=== PATIENT | female | born 1935 | race Caucasian/White ===

== ENCOUNTER 2017-07-10 17:41 | Inpatient (IN) ==
[2017-07-10] MEDS ORDERED: NON-FORMULARY MEDICATION 1 EACH EACH (Alendronate Sodium [Alendronate Sodium] 70 MG) PO SCH (19:15)
[2017-07-11] MEDS: Aspirin Enteric Coated 81 MG Tablet PO SCH (08:25)
[2017-07-11] MEDS: Multivit/Ca/Min/Fe/FA 1 TAB TABLET PO SCH (08:25)
[2017-07-11] MEDS: Celecoxib 200 MG CAPSULE PO SCH (08:27)
[2017-07-11] MEDS: Gabapentin 300 MG CAPSULE PO SCH (08:27)
[2017-07-11] MEDS: *HR* OxyCODONE Immed Rel 5 MG TABLET PO PRN (08:41)
[2017-07-11] MEDS ORDERED: VITAMIN D3 PO SCH (09:00)
[2017-07-11] MEDS ORDERED: CALCIUM CARBONATE PO SCH (09:00)
--- NOTE | 2017-07-11 11:25 | Internal Med History&Physical ---
Date of Encounter: 07/11/17 Time of Encounter: 11:18 Assessment and Plan (1) Fracture, proximal femur Current visit: No Status: Acute PT\OT eval and treat. Will follow progress. Continue oxycodone for pain. Ortho as scheduled. Qualifiers: Encounter type: sequela Fracture type: closed Laterality: right Qualified Code(s): S72.001S - Fracture of unspecified part of neck of right femur, sequela (2) Slow transit constipation Current visit: Yes Status: Acute Colace and Senna ordered. Will monitor for effectiveness Internal Medicine - H&P: HPI Admitted From: Hospital to Hospital Transfer Plans for Post Hospital Care: Home History of present illness: Ms. Waters is a 81 year old female admitted to rehab from [facility] s/ p right subtrochanteric femur fracture and ORIF. fracture was felt to be associated with biphosphonate use. fracture occured whitle bringing groceries into home from car. has had pain in hip for several months. Past medical history includes arthritis, Gerd, hypertension. Patient states pain is controlled with Tylenol and oxycodone. States feeling slightly constipated with last bowel movement 3 days ago. Denies abdominal pain. Denies fever, chills, nausea, vomiting or diarrhea. Maintaining appetite and hydration. Past Med Surg Social Fam HX - Past Medical History Medical history: GERD, hypertension Psychiatric history: anxiety - Past Surgical History Surgical History: cholecystectomy, knee replacement - Social History Smoking Status: Never smoker Smokeless Tobacco Status: No Alcohol use: none Drug use: none Internal Medicine - H&P: Meds Alendronate Sodium 70 mg PO QWEEK 07/04/17 [History] Aspirin [Lo-Dose Aspirin EC] 81 mg PO DAILY 07/04/17 [History] Calcium Carbonate/Vitamin D3 [Calcium 500 mg Chewable Tablet] 1 tab PO DAILY 04/22 [History] Celecoxib [Celebrex] 200 mg PO DAILY 07/04/17 [History] Gabapentin [Neurontin] 300 mg PO DAILY 07/04/17 [History] Minocycline [Minocin] 50 mg PO DAILY 07/04/17 [History] Multivit with Calcium,Iron,Min [One Daily Women's] 1 tab PO DAILY 07/04/17 [ History] Omeprazole [PriLOSEC] 20 mg PO DAILY 07/04/17 [History] Solifenacin Succinate [Vesicare] 5 mg PO DAILY 07/04/17 [History] OxyCODONE Immed Rel [Roxicodone 5 MG] 5 mg PO Q4HR PRN 07/10/17 [History] 3 Allergy/AdvReac Type Severity Reaction Status Date / Time hydrocortisone Allergy Rash Verified 10/18/15 16:20 [From Cortizone-10] All Systems PM: A 10-system review of systems was performed and is negative for pertinent findings except as documented above in the HPI. - Constitutional Constitutional: no chills, no fever(s), no night sweats - EENT Eyes: no change in vision, no discharge, no pain, no photophobia Ears: no ear discharge, no ear pain, no tinnitus Nose, mouth and throat: no dysphagia, no nasal discharge, no neck pain, no sore throat - Cardiovascular Cardiovascular ROS IM: no chest pain, no diaphoresis, no dyspnea, no lightheadedness, no palpitations, no syncope - Respiratory Respiratory: no cough, no dyspnea, no wheezing, no excessive phlegm production - Gastrointestinal Gastrointestinal: no abdominal pain, no diarrhea, no hematemesis, no hematochezia, no melena, no nausea, no vomiting - Genitourinary Genitourinary: no change in urinary stream, no dysuria, no flank pain, no hematuria - Musculoskeletal Musculoskeletal ROS IM: no numbness, no tingling - Integumentary Integumentary IM: no rash, no unusual bruising - Neurological Neurological ROS: no confusion, no convulsions, no focal weakness, no numbness, no tingling, no tremor(s) - Hematologic/Lymphatic Hematologic/Lymphatic: no easy bruising - Constitutional Vitals: Temp Pulse Resp BP Pulse Ox 97.9 F 84 14 126/72 96 07/11/17 08:00 07/11/17 08:00 07/11/17 08:00 07/11/17 08:00 07/11/17 10:29 General appearance: Present: cooperative, A&O X 3, pleasant, no acute distress, answers questions appropriately - Head Head exam: Present: atraumatic, normocephalic - Eye Eye exam: Present: PERRL, conjuntiva pink, sclera anicteric Pupils: Present: PERRL - Neck Neck exam general surgery: Present: supple, trachea midline. Absent: lymphadenopathy - Respiratory Respiratory exam: Present: CTAB. Absent: accessory muscle use, rales, rhonchi, wheezes - Cardiovascular Cardiovascular exam: Present: RRR, +S1, +S2. Absent: diastolic murmur, gallop, rubs, systolic murmur - GI/Abdominal GI/Abdominal exam: Present: normal bowel sounds, soft, no peritoneal signs. Absent: distended, tenderness - Extremities Exam Extremities exam: Present: warm, radial pulses palpable and symmetrical. Absent : calf tenderness, cyanotic, pedal edema - Incison Comments: Right hip dressing dry and intact. Slight surrounding edema. No sign of infection. - Neurological Exam Neurological exam: Present: CN II-XII intact, oriented X3, no focal deficits. Absent: pronater drift, facial droop, speech deficit - Skin Skin exam: Present: dry, intact - VTE Documentation of Mechanical Device: Graduated compression elastic hosiery
[2017-07-11] MEDS: Sennosides 8.6 MG TABLET PO SCH (15:42)
[2017-07-11] MEDS: Acetaminophen 325 MG TABLET PO PRN (20:41)
[2017-07-12 07:43] LABS: Basophils # 0.1 K/mcL (0.0-0.2); Basophils % 0.5 %; Eosinophils # 0.3 K/mcL (0.0-0.6); Eosinophils % 2.9 %; Hematocrit 31.1 % (35.3-44.9); Hemoglobin 10.5 g/dL (11.5-15.4); Immature Granulocytes % 3.3 % (0-4); Lymphocytes # 2.6 K/mcL (0.6-4.6); Lymphocytes % 23.5 %; Mean Corpuscular HGB Conc 33.8 g/dL (31.6-35.5); Mean Corpuscular Hemoglobin 33.5 pg (28.0-33.3); Mean Corpuscular Volume 99.4 fL (83.0-100.0); Mean Platelet Volume 8.9 fL (9.4-12.4); Monocytes # 1.1 K/mcL (0.0-1.3); Monocytes % 9.9 %; Neutrophils # 6.6 K/mcL (1.6-8.9); Nucleated Red Blood Cells 0.2 /100 WBC (0); Platelet Count 400 K/mcL (140-400); Red Blood Count 3.13 M/mcL (3.82-4.97); Red Cell Distribution Width 13.7 % (11.5-14.5); Segmented Neutrophils % 59.9 %
[2017-07-12] MEDS: Sennosides 8.6 MG TABLET PO SCH (08:24)
[2017-07-12] MEDS: Celecoxib 200 MG CAPSULE PO SCH (08:24)
[2017-07-12] MEDS: Multivit/Ca/Min/Fe/FA 1 TAB TABLET PO SCH (08:25)
[2017-07-12] MEDS: Cholecalciferol (D-3) 1,000 UNIT TABLET PO SCH (08:26)
[2017-07-12] MEDS: Gabapentin 300 MG CAPSULE PO SCH (08:26)
[2017-07-12] MEDS: Aspirin Enteric Coated 81 MG Tablet PO SCH (08:27)
[2017-07-12 12:10] LABS: BUN/Creatinine Ratio 35 (6-26); Blood Urea Nitrogen 22 mg/dL (8-23); Calcium 8.7 mg/dL (8.6-10.3); Carbon Dioxide 27 mEq/L (23-29); Chloride 101 mEq/L (98-107); Glucose 105 mg/dL (70-105); Osmolality,Calculated 288 (280-300); Potassium 4.2 mEq/L (3.5-5.1); Sodium 137 mEq/L (136-145); eGFR For African Americans > 60 (> 60); eGFR For Non-African Americans > 60 (> 60)
[2017-07-12] MEDS: *HR* OxyCODONE Immed Rel 5 MG TABLET PO PRN ×2 (12:31→22:17)
--- NOTE | 2017-07-12 16:58 | Internal Med Progress Note ---
Date of Encounter: 07/12/17 Time of Encounter: 16:52 - Assessment and plan (1) Fracture of right hip requiring operative repair Current Visit: Yes Status: Acute Assessment and plan: Right hip surgical dressing showing moderate amount of shadowing. Nurse reports that dressing has saturated twice over the past 24 hours with serosanguineous type drainage. Patient has a large amount of ecchymosis and swelling surrounding surgical site, which remains soft on palpation. No signs of infectious process noted. Patient is afebrile. We will have nursing apply ice to surgical site. We will review current labs. Patient to continue with physical therapy and mobilize. Qualifiers: Encounter type: subsequent encounter Fracture type: closed Fracture healing: with delayed healing Qualified Code(s): S72.001G - Fracture of unspecified part of neck of right femur, subsequent encounter for closed fracture with delayed healing (2) HTN (hypertension) Current Visit: Yes Status: Acute Assessment and plan: Vital signs stable. We will continue with current medications. Qualifiers: Hypertension type: essential hypertension Qualified Code(s): I10 - Essential (primary) hypertension (3) GERD (gastroesophageal reflux disease) Current Visit: Yes Status: Acute Assessment and plan: No current complaints. We will continue with current scheduled medications. Qualifiers: Esophagitis presence: without esophagitis Qualified Code(s): K21.9 - Gastro -esophageal reflux disease without esophagitis - Time Spent With Patient less than 15 minutes - Subjective Interval history: Patient appears relaxed and currently denies any discomforts. - Constitutional Vitals: Temp Pulse Resp BP Pulse Ox 97.6 F 82 16 119/75 97 07/12/17 16:46 07/12/17 16:46 07/12/17 16:46 07/12/17 16:46 07/12/17 16:46 General appearance: Present: cooperative, A&O X 3, pleasant, no acute distress, answers questions appropriately - Head Head exam: Present: atraumatic, normocephalic - Eye Eye exam: Present: PERRL, conjuntiva pink, sclera anicteric Pupils: Present: PERRL - Neck Neck exam general surgery: Present: supple, trachea midline. Absent: lymphadenopathy - Respiratory Respiratory exam: Present: CTAB. Absent: accessory muscle use, rales, rhonchi, wheezes - Cardiovascular Cardiovascular exam: Present: RRR, +S1, +S2. Absent: diastolic murmur, gallop, rubs, systolic murmur - GI/Abdominal GI/Abdominal exam: Present: normal bowel sounds, soft, no peritoneal signs. Absent: distended, tenderness - Extremities Exam Extremities exam: Present: warm, radial pulses palpable and symmetrical. Absent : calf tenderness, cyanotic, pedal edema Additional comments: Right hip surgical dressing with moderate amount of shadowing noted. Patient has had moderate amount of serosanguineous drainage from surgical incision. Right hip appears swollen with a large amount of ecchymosis surrounding surgical site. - Neurological Exam Neurological exam: Present: CN II-XII intact, oriented X3, no focal deficits. Absent: pronater drift, facial droop, speech deficit - Skin Skin exam: Present: dry, intact Internal Medicine: Result - Labs CBC & Chem 7: 07/12/17 07:09 07/12/17 07:09 Labs: Short CBC 07/12/17 Range/Units 07:09 WBC 11.1 (4.3-11.1) K/mcL Hgb 10.5 L (11.5-15.4) g/dL Hct 31.1 L (35.3-44.9) % Plt Count 400 (140-400) K/mcL Neutrophils # 6.6 (1.6-8.9) K/mcL BMP 07/12/17 07:09 Sodium 137 Potassium 4.2 Chloride 101 Carbon Dioxide 27 BUN 22 Creatinine 0.63 Glucose 105 Calcium 8.7 - VTE Documentation of Mechanical Device: Graduated compression elastic hosiery Consult Discharge Plan - Plan Referrals: Brian Cobos MD [Primary Care Provider] -
[2017-07-13] MEDS: *HR* OxyCODONE Immed Rel 5 MG TABLET PO PRN ×2 (04:36→09:38)
[2017-07-13 06:58] LABS: Hematocrit 30.3 % (35.3-44.9); Hemoglobin 10.1 g/dL (11.5-15.4); Mean Corpuscular HGB Conc 33.3 g/dL (31.6-35.5); Mean Corpuscular Hemoglobin 33.4 pg (28.0-33.3); Mean Corpuscular Volume 100.3 fL (83.0-100.0); Mean Platelet Volume 8.8 fL (9.4-12.4); Platelet Count 401 K/mcL (140-400); Red Blood Count 3.02 M/mcL (3.82-4.97)
[2017-07-13 07:21] LABS: Alanine Aminotransferase 32 Units/L (7-52); Albumin 3.1 g/dL (3.5-5.7); Albumin/Globulin Ratio 1.1 (1.1-2.2); Alkaline Phosphatase 56 Units/L (34-104); Aspartate Amino Transferase 21 Units/L (13-39); BUN/Creatinine Ratio 29 (6-26); Bilirubin,Total 0.7 mg/dL (0.3-1.0); Blood Urea Nitrogen 16 mg/dL (8-23); Calcium 8.6 mg/dL (8.6-10.3); Carbon Dioxide 29 mEq/L (23-29); Chloride 104 mEq/L (98-107); Globulin 2.9 g/dL (2.4-3.5); Glucose 102 mg/dL (70-105); Magnesium 1.7 mg/dL (1.6-2.6); Osmolality,Calculated 287 (280-300); Sodium 138 mEq/L (136-145); eGFR For African Americans > 60 (> 60); eGFR For Non-African Americans > 60 (> 60)
[2017-07-13] MEDS: Cholecalciferol (D-3) 1,000 UNIT TABLET PO SCH (09:37)
[2017-07-13] MEDS: Gabapentin 300 MG CAPSULE PO SCH (09:38)
[2017-07-13] MEDS: Multivit/Ca/Min/Fe/FA 1 TAB TABLET PO SCH (09:38)
[2017-07-13] MEDS: Sennosides 8.6 MG TABLET PO SCH (09:39)
[2017-07-13] MEDS: Aspirin Enteric Coated 81 MG Tablet PO SCH ×2 (09:39→10:47)
[2017-07-13] MEDS: Celecoxib 200 MG CAPSULE PO SCH (09:39)
--- NOTE | 2017-07-13 09:56 | Internal Med Progress Note ---
Date of Encounter: 07/13/17 Time of Encounter: 09:53 - Assessment and plan (1) Fracture of right hip requiring operative repair Current Visit: Yes Status: Acute Assessment and plan: Right hip surgical dressing continues to show a small amount of shadowing to upper portion of dressing. Drainage has dropped off over the past 24 hours. Patient has a large amount of ecchymosis and swelling surrounding surgical site , which remains soft on palpation. No signs of infectious process noted. Patient is afebrile. Patient has complained of moderate pain to right hip during therapy. We will reevaluate patient's current medications. Labs show hemoglobin is stable greater than 10. We to 2 apply ice to surgical site. Patient to continue with physical therapy and mobilize. Qualifiers: Encounter type: subsequent encounter Fracture type: closed Fracture healing: with delayed healing Qualified Code(s): S72.001G - Fracture of unspecified part of neck of right femur, subsequent encounter for closed fracture with delayed healing (2) HTN (hypertension) Current Visit: Yes Status: Acute Assessment and plan: Vital signs stable. We will continue with current medications and monitor closely. Qualifiers: Hypertension type: essential hypertension Qualified Code(s): I10 - Essential (primary) hypertension (3) GERD (gastroesophageal reflux disease) Current Visit: Yes Status: Acute Assessment and plan: No current complaints. We will continue with current scheduled medications. Qualifiers: Esophagitis presence: without esophagitis Qualified Code(s): K21.9 - Gastro -esophageal reflux disease without esophagitis - Time Spent With Patient less than 15 minutes - Subjective Interval history: Patient appears relaxed. Patient states that she has had increased pain when mobilizing. Patient states concerns about swelling and ecchymosis to right hip surgical site. Right hip was examined and patient was reassured. - Constitutional Vitals: Temp Pulse Resp BP Pulse Ox 97.9 F 88 16 121/66 97 07/12/17 20:24 07/12/17 20:24 07/12/17 20:24 07/12/17 20:24 07/12/17 20:24 General appearance: Present: cooperative, A&O X 3, pleasant, no acute distress, answers questions appropriately - Head Head exam: Present: atraumatic, normocephalic - Eye Eye exam: Present: PERRL, conjuntiva pink, sclera anicteric Pupils: Present: PERRL - Neck Neck exam general surgery: Present: supple, trachea midline. Absent: lymphadenopathy - Respiratory Respiratory exam: Present: CTAB. Absent: accessory muscle use, rales, rhonchi, wheezes - Cardiovascular Cardiovascular exam: Present: RRR, +S1, +S2. Absent: diastolic murmur, gallop, rubs, systolic murmur - GI/Abdominal GI/Abdominal exam: Present: normal bowel sounds, soft, no peritoneal signs. Absent: distended, tenderness - Extremities Exam Extremities exam: Present: warm, radial pulses palpable and symmetrical. Absent : calf tenderness, cyanotic, pedal edema Additional comments: Right hip surgical site appears intact. Noted serosanguineous type drainage to upper portion of his incision with a small amount of shadowing noted in dressing. Large amount of ecchymosis and edema noted, mostly to posterior hip and thigh. Surrounding tissue to surgical site remains soft on palpation. - Neurological Exam Neurological exam: Present: CN II-XII intact, oriented X3, no focal deficits. Absent: pronater drift, facial droop, speech deficit - Skin Skin exam: Present: dry, intact Internal Medicine: Result - Labs CBC & Chem 7: 07/13/17 06:32 07/13/17 06:32 Labs: Short CBC 07/13/17 Range/Units 06:32 WBC 10.1 (4.3-11.1) K/mcL Hgb 10.1 L (11.5-15.4) g/dL Hct 30.3 L (35.3-44.9) % Plt Count 401 H (140-400) K/mcL BMP 07/12/17 07/13/17 07:09 06:32 Sodium 137 138 Potassium 4.2 4.0 Chloride 101 104 Carbon Dioxide 27 29 BUN 22 16 Creatinine 0.63 0.56 L Glucose 105 102 Calcium 8.7 8.6 Liver Function 07/13/17 Range/Units 06:32 Total Bilirubin 0.7 (0.3-1.0) mg/dL AST 21 (13-39) Units/L ALT 32 (7-52) Units/L Alkaline Phosphatase 56 (34-104) Units/L Albumin 3.1 L (3.5-5.7) g/dL - VTE Documentation of Mechanical Device: Graduated compression elastic hosiery Consult Discharge Plan - Plan Referrals: Brian Cobos MD [Primary Care Provider] -
[2017-07-13] MEDS: Acetaminophen 325 MG TABLET PO PRN (21:23)
[2017-07-14] MEDS: *HR* OxyCODONE Immed Rel 5 MG TABLET PO PRN ×4 (01:35→18:53)
[2017-07-14] MEDS: Aspirin Enteric Coated 81 MG Tablet PO SCH (08:30)
[2017-07-14] MEDS: Multivit/Ca/Min/Fe/FA 1 TAB TABLET PO SCH (08:30)
[2017-07-14] MEDS: Celecoxib 200 MG CAPSULE PO SCH (08:31)
[2017-07-14] MEDS: Sennosides 8.6 MG TABLET PO SCH (08:31)
[2017-07-14] MEDS: Gabapentin 300 MG CAPSULE PO SCH (08:31)
[2017-07-14] MEDS: Cholecalciferol (D-3) 1,000 UNIT TABLET PO SCH (08:31)
[2017-07-15] MEDS: *HR* OxyCODONE Immed Rel 5 MG TABLET PO PRN ×3 (00:57→20:44)
[2017-07-15] MEDS: Aspirin Enteric Coated 81 MG Tablet PO SCH (07:58)
[2017-07-15] MEDS: Cholecalciferol (D-3) 1,000 UNIT TABLET PO SCH (07:58)
[2017-07-15] MEDS: Gabapentin 300 MG CAPSULE PO SCH (07:58)
[2017-07-15] MEDS: Celecoxib 200 MG CAPSULE PO SCH (07:58)
[2017-07-15] MEDS: Multivit/Ca/Min/Fe/FA 1 TAB TABLET PO SCH (07:58)
[2017-07-15] MEDS: Sennosides 8.6 MG TABLET PO SCH (07:59)
[2017-07-15] MEDS: *HR* Heparin 5,000 UNIT/ML VIAL SQ SCH (18:29)
[2017-07-16] MEDS: *HR* Heparin 5,000 UNIT/ML VIAL SQ SCH ×2 (04:51→18:29)
[2017-07-16] MEDS: *HR* OxyCODONE Immed Rel 5 MG TABLET PO PRN ×5 (04:58→21:39)
[2017-07-16] MEDS: Celecoxib 200 MG CAPSULE PO SCH (08:56)
[2017-07-16] MEDS: Gabapentin 300 MG CAPSULE PO SCH (08:56)
[2017-07-16] MEDS: Aspirin Enteric Coated 81 MG Tablet PO SCH (08:56)
[2017-07-16] MEDS: Cholecalciferol (D-3) 1,000 UNIT TABLET PO SCH (08:56)
[2017-07-16] MEDS: Multivit/Ca/Min/Fe/FA 1 TAB TABLET PO SCH (08:56)
[2017-07-16] MEDS: Sennosides 8.6 MG TABLET PO SCH (08:57)
--- NOTE | 2017-07-16 10:57 | Internal Med Progress Note ---
Date of Encounter: 07/16/17 Time of Encounter: 10:55 - Assessment and plan (1) Fracture, proximal femur Current Visit: No Status: Inactive Assessment and plan: Continue PT\OT. Will start Zanaflex as needed for muscle spasms. Keflex started for increased drainage and slight redness to incision. For preventative measure Qualifiers: Encounter type: sequela Fracture type: closed Laterality: right Qualified Code(s): S72.001S - Fracture of unspecified part of neck of right femur, sequela - Time Spent With Patient 25 - 35 minutes - Subjective Interval history: Participating well with therapy. Patient complains of increased hip pain. Radiating through the thigh area. Feels like muscle spasms. Nursing staff reports increased drainage to incision. Patient denies fever, chills, nausea, vomiting or diarrhea. Patient states last BM yesterday. Maintaining appetite and hydration. - Constitutional Vitals: Temp Pulse Resp BP Pulse Ox 98.1 F 78 16 125/72 97 07/16/17 07:00 07/16/17 07:00 07/16/17 07:00 07/16/17 07:00 07/16/17 07:00 General appearance: Present: cooperative, A&O X 3, pleasant, no acute distress, answers questions appropriately - Head Head exam: Present: atraumatic, normocephalic - Eye Eye exam: Present: PERRL, conjuntiva pink, sclera anicteric Pupils: Present: PERRL - Neck Neck exam general surgery: Present: supple, trachea midline. Absent: lymphadenopathy - Respiratory Respiratory exam: Present: CTAB. Absent: accessory muscle use, rales, rhonchi, wheezes - Cardiovascular Cardiovascular exam: Present: RRR, +S1, +S2. Absent: diastolic murmur, gallop, rubs, systolic murmur - GI/Abdominal GI/Abdominal exam: Present: normal bowel sounds, soft, no peritoneal signs. Absent: distended, tenderness - Extremities Exam Extremities exam: Present: warm, radial pulses palpable and symmetrical. Absent : calf tenderness, cyanotic, pedal edema - Incison Comments: Right hip incision [place] intact. Well approximated with slight redness on proximal end of incision. Distal and draining sanguinous drainage. Scattered ecchymosis. - Neurological Exam Neurological exam: Present: CN II-XII intact, oriented X3, no focal deficits. Absent: pronater drift, facial droop, speech deficit - Skin Skin exam: Present: dry, intact Internal Medicine: Result - Labs CBC & Chem 7: 07/13/17 06:32 07/13/17 06:32 - VTE Documentation of Mechanical Device: Graduated compression elastic hosiery Consult Discharge Plan - Plan Referrals: Brian Cobos MD [Primary Care Provider] -
[2017-07-16] MEDS: tiZANidine 4 MG TABLET PO PRN (11:05)
[2017-07-16] MEDS: cephALEXin 500 MG CAPSULE PO SCH ×3 (13:19→21:38)
[2017-07-16 19:22] LABS: Basophils % 0.3 %; Eosinophils # 0.3 K/mcL (0.0-0.6); Eosinophils % 2.8 %; Hematocrit 32.2 % (35.3-44.9); Hemoglobin 10.8 g/dL (11.5-15.4); Immature Granulocytes % 0.7 % (0-4); Lymphocytes # 2.5 K/mcL (0.6-4.6); Lymphocytes % 23.1 %; Mean Corpuscular HGB Conc 33.5 g/dL (31.6-35.5); Mean Corpuscular Hemoglobin 34.7 pg (28.0-33.3); Mean Corpuscular Volume 103.5 fL (83.0-100.0); Mean Platelet Volume 8.8 fL (9.4-12.4); Monocytes # 0.9 K/mcL (0.0-1.3); Monocytes % 8.4 %; Neutrophils # 6.9 K/mcL (1.6-8.9); Platelet Count 402 K/mcL (140-400); Red Blood Count 3.11 M/mcL (3.82-4.97); Red Cell Distribution Width 15.4 % (11.5-14.5); Segmented Neutrophils % 64.7 %
[2017-07-16 19:35] LABS: BUN/Creatinine Ratio 31 (6-26); Blood Urea Nitrogen 24 mg/dL (8-23); Calcium 8.9 mg/dL (8.6-10.3); Carbon Dioxide 29 mEq/L (23-29); Chloride 101 mEq/L (98-107); Glucose 103 mg/dL (70-105); Osmolality,Calculated 286 (280-300); Potassium 4.1 mEq/L (3.5-5.1); Sodium 136 mEq/L (136-145); eGFR For African Americans > 60 (> 60); eGFR For Non-African Americans > 60 (> 60)
[2017-07-17] MEDS: *HR* Heparin 5,000 UNIT/ML VIAL SQ SCH ×2 (05:18→17:16)
[2017-07-17] MEDS: *HR* OxyCODONE Immed Rel 5 MG TABLET PO PRN ×5 (05:20→21:27)
[2017-07-17 05:36] LABS: Basophils % 0.4 %; Eosinophils # 0.3 K/mcL (0.0-0.6); Eosinophils % 3.7 %; Hemoglobin 10.5 g/dL (11.5-15.4); Immature Granulocytes % 0.6 % (0-4); Lymphocytes # 1.7 K/mcL (0.6-4.6); Lymphocytes % 21.3 %; Mean Corpuscular HGB Conc 32.8 g/dL (31.6-35.5); Mean Corpuscular Hemoglobin 33.8 pg (28.0-33.3); Mean Corpuscular Volume 102.9 fL (83.0-100.0); Mean Platelet Volume 8.6 fL (9.4-12.4); Monocytes # 0.7 K/mcL (0.0-1.3); Monocytes % 8.5 %; Neutrophils # 5.3 K/mcL (1.6-8.9); Platelet Count 383 K/mcL (140-400); Red Blood Count 3.11 M/mcL (3.82-4.97); Red Cell Distribution Width 15.9 % (11.5-14.5); Segmented Neutrophils % 65.5 %
[2017-07-17 05:52] LABS: BUN/Creatinine Ratio 32 (6-26); Blood Urea Nitrogen 20 mg/dL (8-23); Calcium 8.9 mg/dL (8.6-10.3); Carbon Dioxide 30 mEq/L (23-29); Chloride 103 mEq/L (98-107); Glucose 99 mg/dL (70-105); Osmolality,Calculated 289 (280-300); Potassium 4.4 mEq/L (3.5-5.1); Sodium 138 mEq/L (136-145); eGFR For African Americans > 60 (> 60); eGFR For Non-African Americans > 60 (> 60)
[2017-07-17] MEDS: Gabapentin 300 MG CAPSULE PO SCH (08:02)
[2017-07-17] MEDS: Sennosides 8.6 MG TABLET PO SCH (08:02)
[2017-07-17] MEDS: Aspirin Enteric Coated 81 MG Tablet PO SCH (08:02)
[2017-07-17] MEDS: Multivit/Ca/Min/Fe/FA 1 TAB TABLET PO SCH (08:02)
[2017-07-17] MEDS: Celecoxib 200 MG CAPSULE PO SCH (08:02)
[2017-07-17] MEDS: Cholecalciferol (D-3) 1,000 UNIT TABLET PO SCH (08:03)
[2017-07-17] MEDS: cephALEXin 500 MG CAPSULE PO SCH ×4 (08:03→21:27)
--- NOTE | 2017-07-17 15:42 | Internal Med Progress Note ---
Date of Encounter: 07/17/17 Time of Encounter: 15:40 - Assessment and plan (1) Fracture, proximal femur Current Visit: No Status: Inactive Assessment and plan: Continue PT\OT. continue current pain meds. will continue Keflex drainage and slight redness to incision. For preventative measure Qualifiers: Encounter type: sequela Fracture type: closed Laterality: right Qualified Code(s): S72.001S - Fracture of unspecified part of neck of right femur, sequela - Time Spent With Patient less than 15 minutes - Subjective Interval history: Participating well with therapy. states pain is controlled better with medication today. Patient denies fever, chills, nausea, vomiting or diarrhea. Patient states last BM yesterday. Maintaining appetite and hydration. - Constitutional Vitals: Temp Pulse Resp BP Pulse Ox 98.1 F 73 16 122/72 95 07/17/17 06:56 07/17/17 06:56 07/17/17 06:56 07/17/17 06:56 07/17/17 06:56 General appearance: Present: cooperative, A&O X 3, pleasant, no acute distress, answers questions appropriately - Head Head exam: Present: atraumatic, normocephalic - Eye Eye exam: Present: PERRL, conjuntiva pink, sclera anicteric Pupils: Present: PERRL - Neck Neck exam general surgery: Present: supple, trachea midline. Absent: lymphadenopathy - Respiratory Respiratory exam: Present: CTAB. Absent: accessory muscle use, rales, rhonchi, wheezes - Cardiovascular Cardiovascular exam: Present: RRR, +S1, +S2. Absent: diastolic murmur, gallop, rubs, systolic murmur - GI/Abdominal GI/Abdominal exam: Present: normal bowel sounds, soft, no peritoneal signs. Absent: distended, tenderness - Extremities Exam Extremities exam: Present: warm, radial pulses palpable and symmetrical. Absent : calf tenderness, cyanotic, pedal edema - Incison Comments: right hip drsg intact with surrounding edema and eccchymosis. slight drainage. - Neurological Exam Neurological exam: Present: CN II-XII intact, oriented X3, no focal deficits. Absent: pronater drift, facial droop, speech deficit - Skin Skin exam: Present: dry, intact Internal Medicine: Result - Labs CBC & Chem 7: 05/15/18 05:25 07/17/17 05:25 Labs: Short CBC 07/16/17 07/17/17 Range/Units 19:05 05:25 WBC 10.6 8.1 (4.3-11.1) K/mcL Hgb 10.8 L 10.5 L (11.5-15.4) g/dL Hct 32.2 L 32.0 L (35.3-44.9) % Plt Count 402 H 383 (140-400) K/mcL Neutrophils # 6.9 5.3 (1.6-8.9) K/mcL BMP 07/16/17 07/17/17 19:05 05:25 Sodium 136 138 Potassium 4.1 4.4 Chloride 101 103 Carbon Dioxide 29 30 H BUN 24 H 20 Creatinine 0.77 0.63 Glucose 103 99 Calcium 8.9 8.9 - Impressions Impressions Hip X-Ray 07/16/17 13:56 IMPRESSION: 1. Anatomic reduction of right subtrochanteric transverse femur fracture with intact hardware and mild interval callus formation. 2. Normal right hip alignment. D/ / 07/16/2017 15:38:05 Isaias James MD / giancarlo Interpreting Provider: Isaias James MD - VTE Documentation of Mechanical Device: Graduated compression elastic hosiery Consult Discharge Plan - Plan Referrals: Brian Cobos MD [Primary Care Provider] -
[2017-07-18] MEDS: Acetaminophen 325 MG TABLET PO PRN (05:25)
[2017-07-18] MEDS: tiZANidine 4 MG TABLET PO PRN (05:25)
[2017-07-18] MEDS: *HR* Heparin 5,000 UNIT/ML VIAL SQ SCH ×2 (05:26→18:58)
[2017-07-18] MEDS: *HR* OxyCODONE Immed Rel 5 MG TABLET PO PRN ×4 (08:38→21:18)
[2017-07-18] MEDS: Cholecalciferol (D-3) 1,000 UNIT TABLET PO SCH (08:39)
[2017-07-18] MEDS: Aspirin Enteric Coated 81 MG Tablet PO SCH (08:39)
[2017-07-18] MEDS: Celecoxib 200 MG CAPSULE PO SCH (08:39)
[2017-07-18] MEDS: Multivit/Ca/Min/Fe/FA 1 TAB TABLET PO SCH (08:39)
[2017-07-18] MEDS: cephALEXin 500 MG CAPSULE PO SCH ×4 (08:39→21:18)
[2017-07-18] MEDS: Gabapentin 300 MG CAPSULE PO SCH (08:39)
[2017-07-18] MEDS: Sennosides 8.6 MG TABLET PO SCH (08:40)
--- NOTE | 2017-07-18 11:35 | Internal Med Progress Note ---
Date of Encounter: 07/18/17 Time of Encounter: 11:07 - Assessment and plan (1) Fracture of right hip requiring operative repair Current Visit: Yes Status: Acute Assessment and plan: Right hip surgical dressing continues to show a small amount of shadowing to upper portion of dressing. No drainage noted over the past 24 hours. Patient has a large amount of ecchymosis to the posterior thigh and swelling surrounding surgical site. Leg leg is swollen with no reports of pain to the lower leg. No signs of infectious process noted. Patient is afebrile. Patient has complained of moderate pain to right hip during therapy. We will reevaluate patient's current medications. Labs show hemoglobin is stable greater than 10. Will continue ice to surgical site. Phani hose to legs. Patient to continue with physical therapy and mobilize. Qualifiers: Encounter type: subsequent encounter Fracture type: closed Fracture healing: with delayed healing Qualified Code(s): S72.001G - Fracture of unspecified part of neck of right femur, subsequent encounter for closed fracture with delayed healing (2) HTN (hypertension) Current Visit: Yes Status: Acute Assessment and plan: Vital signs stable. We will continue with current medications and monitor closely. Qualifiers: Hypertension type: essential hypertension Qualified Code(s): I10 - Essential (primary) hypertension (3) GERD (gastroesophageal reflux disease) Current Visit: Yes Status: Acute Assessment and plan: No current complaints. We will continue with current scheduled medications. Qualifiers: Esophagitis presence: without esophagitis Qualified Code(s): K21.9 - Gastro -esophageal reflux disease without esophagitis - Time Spent With Patient less than 15 minutes - Subjective Interval history: Patient appears relaxed. Patient states that she continues to have increased pain when mobilizing. Patient states concerns about swelling and ecchymosis to right hip surgical site. Right hip was examined and patient was reassured. - Constitutional Vitals: Temp Pulse Resp BP Pulse Ox 98.0 F 73 16 119/69 94 07/18/17 06:00 07/18/17 06:00 07/18/17 06:00 07/18/17 06:00 07/18/17 06:00 General appearance: Present: cooperative, A&O X 3, pleasant, no acute distress, answers questions appropriately - Head Head exam: Present: atraumatic, normocephalic - Eye Eye exam: Present: PERRL, conjuntiva pink, sclera anicteric Pupils: Present: PERRL - Neck Neck exam general surgery: Present: supple, trachea midline. Absent: lymphadenopathy - Respiratory Respiratory exam: Present: CTAB. Absent: accessory muscle use, rales, rhonchi, wheezes - Cardiovascular Cardiovascular exam: Present: RRR, +S1, +S2. Absent: diastolic murmur, gallop, rubs, systolic murmur - GI/Abdominal GI/Abdominal exam: Present: normal bowel sounds, soft, no peritoneal signs. Absent: distended, tenderness - Extremities Exam Extremities exam: Present: joint swelling, warm, radial pulses palpable and symmetrical. Absent: calf tenderness, cyanotic, pedal edema Additional comments: Right hip and thigh surgical incisions appear dry and intact. Patient noted to have large amount of ecchymosis still present to the posterior portion of her thigh. Right leg shows moderate amount of edema. Patient denies any pain to the lower leg. - Neurological Exam Neurological exam: Present: CN II-XII intact, oriented X3, no focal deficits. Absent: pronater drift, facial droop, speech deficit - Skin Skin exam: Present: dry, intact Internal Medicine: Result - Labs CBC & Chem 7: 07/17/17 05:25 07/17/17 05:25 - VTE Documentation of Mechanical Device: Graduated compression elastic hosiery Consult Discharge Plan - Plan Referrals: Brian Cobos MD [Primary Care Provider] -
--- NOTE | 2017-07-18 22:23 | Physcial Medicine-Consult Note ---
Date of Encounter: 07/18/17 Time of Encounter: 16:00 Physical Medicine - AP (1) Fracture of right hip requiring operative repair Status: Acute Assessment and plan: Good progress. Ambulating 125" WWKR SBA continue rehab. Assess for constipation. Code(s): S72.001A - Fracture of unspecified part of neck of right femur, initial encounter for closed fracture SNOMED Code(s): 830422237 Physical Medicine - HPI - Data of Consult Requesting Physician: Alf Egan MD Primary Care Provider: Brian Cobos MD - Consult Narrative History of present illness: Ms. Waters is a 81 year old RH female with hip fracture s/p IM nail. She c/o hip pain near the end of activity, better at rest. No numbness tingling or calf pain. CC: Alf Egan MD Past Med Surg Social Fam HX - Past Medical History Medical history: GERD, hypertension Psychiatric history: anxiety - Past Surgical History Surgical History: cholecystectomy, knee replacement - Social History Smoking Status: Never smoker Smokeless Tobacco Status: No Alcohol use: none Drug use: none Medications and Allergies Alendronate Sodium 70 mg PO QWEEK 07/04/17 [History] Aspirin [Lo-Dose Aspirin EC] 81 mg PO DAILY 07/04/17 [History] Calcium Carbonate/Vitamin D3 [Calcium 500 mg Chewable Tablet] 1 tab PO DAILY 04/22 [History] Celecoxib [Celebrex] 200 mg PO DAILY 07/04/17 [History] Gabapentin [Neurontin] 300 mg PO DAILY 07/04/17 [History] Minocycline [Minocin] 50 mg PO DAILY 07/04/17 [History] Multivit with Calcium,Iron,Min [One Daily Women's] 1 tab PO DAILY 07/04/17 [ History] Omeprazole [PriLOSEC] 20 mg PO DAILY 07/04/17 [History] Solifenacin Succinate [Vesicare] 5 mg PO DAILY 07/04/17 [History] OxyCODONE Immed Rel [Roxicodone 5 MG] 5 mg PO Q4HR PRN 07/10/17 [History] 3 Allergy/AdvReac Type Severity Reaction Status Date / Time hydrocortisone Allergy Rash Verified 10/18/15 16:20 [From Cortizone-10] All systems: reviewed and no additional remarkable complaints except as stated Physical Medicine - Exam - Constitutional Vitals: Temp Pulse Resp BP Pulse Ox 97.9 F 83 16 129/57 95 07/18/17 19:06 07/18/17 19:06 07/18/17 19:06 07/18/17 19:06 07/18/17 19:06 General appearance: average body habitus, cooperative, no acute distress - Head Head exam: Present: atraumatic, normocephalic - Eye Eye exam: Present: EOMI - ENT ENT exam: Present: mucous membranes moist - Neck Neck exam: Present: full ROM - Respiratory Respiratory exam: Present: CTAB - Cardiovascular Cardiovascular exam: Present: RRR - GI/Abdominal GI/Abdominal exam: Present: normal bowel sounds, soft - Extremities Exam Extremities exam: Absent: calf tenderness, full ROM Additional comments: Antigravity right hip flexion. 1+ LE edema. Good distal strngth. - Neurological Exam Neurological exam: Present: abnormal gait, alert, oriented X3, no focal deficits - Psychiatric Psychiatric exam: Present: normal affect, normal mood - Skin Additional comments: Right hip and distal thigh incisions Physical Medicine - Results - Labs CBC & Chem 7: 07/17/17 05:25 07/17/17 05:25 Labs: Anemia - Impressions ITS Impressions Hip X-Ray 07/16/17 13:56 IMPRESSION: 1. Anatomic reduction of right subtrochanteric transverse femur fracture with intact hardware and mild interval callus formation. 2. Normal right hip alignment. D/ / 07/16/2017 15:38:05 Isaias James MD / [facility] Interpreting Provider: Isaias James MD Consult Discharge Plan - Plan Referrals: Brian Cobos MD [Primary Care Provider] -
[2017-07-19] MEDS: *HR* OxyCODONE Immed Rel 5 MG TABLET PO PRN ×5 (04:00→20:51)
[2017-07-19] MEDS: *HR* Heparin 5,000 UNIT/ML VIAL SQ SCH ×2 (05:12→18:55)
[2017-07-19] MEDS: Cholecalciferol (D-3) 1,000 UNIT TABLET PO SCH (08:34)
[2017-07-19] MEDS: Celecoxib 200 MG CAPSULE PO SCH (08:34)
[2017-07-19] MEDS: Gabapentin 300 MG CAPSULE PO SCH (08:34)
[2017-07-19] MEDS: Aspirin Enteric Coated 81 MG Tablet PO SCH (08:34)
[2017-07-19] MEDS: Multivit/Ca/Min/Fe/FA 1 TAB TABLET PO SCH (08:34)
[2017-07-19] MEDS: cephALEXin 500 MG CAPSULE PO SCH ×4 (08:35→20:51)
[2017-07-19] MEDS: Sennosides 8.6 MG TABLET PO SCH (08:35)
--- NOTE | 2017-07-19 15:17 | Internal Med Progress Note ---
Date of Encounter: 07/19/17 Time of Encounter: 15:15 - Assessment and plan (1) Fracture, proximal femur Current Visit: No Status: Inactive Assessment and plan: Continue PT\OT. continue current pain meds. will continue Keflex drainage and slight redness to incision. For preventative measure Qualifiers: Encounter type: sequela Fracture type: closed Laterality: right Qualified Code(s): S72.001S - Fracture of unspecified part of neck of right femur, sequela - Time Spent With Patient less than 15 minutes - Subjective Interval history: Daughter at bedside. Participating well with therapy. states pain is controlled better with medication. Patient denies fever, chills, nausea, vomiting or diarrhea. Patient states last BM yesterday. Maintaining appetite and hydration. Patient will require hospital bed at discharge. Patient requires the assistance of a hospital bed to make frequent and immediate changes body positions not feasible with an ordinary bed. Needs bed height requirements to perform patient transfers, grooming and daily living tasks. - Constitutional Vitals: Temp Pulse Resp BP Pulse Ox 98.1 F 85 16 131/70 93 07/19/17 06:56 07/19/17 06:56 07/19/17 06:56 07/19/17 06:56 07/19/17 06:56 General appearance: Present: cooperative, A&O X 3, pleasant, no acute distress, answers questions appropriately - Head Head exam: Present: atraumatic, normocephalic - Eye Eye exam: Present: PERRL, conjuntiva pink, sclera anicteric Pupils: Present: PERRL - Neck Neck exam general surgery: Present: supple, trachea midline. Absent: lymphadenopathy - Respiratory Respiratory exam: Present: CTAB. Absent: accessory muscle use, rales, rhonchi, wheezes - Cardiovascular Cardiovascular exam: Present: RRR, +S1, +S2. Absent: diastolic murmur, gallop, rubs, systolic murmur - GI/Abdominal GI/Abdominal exam: Present: normal bowel sounds, soft, no peritoneal signs. Absent: distended, tenderness - Extremities Exam Extremities exam: Present: warm, radial pulses palpable and symmetrical. Absent : calf tenderness, cyanotic, pedal edema Additional comments: Nonpitting bilateral lower extremity edema. - Incison Comments: Right hip incision slight serousanguinous drainage. Well approximated. Slight redness proximal end. - Neurological Exam Neurological exam: Present: CN II-XII intact, oriented X3, no focal deficits. Absent: pronater drift, facial droop, speech deficit - Skin Skin exam: Present: dry, intact Internal Medicine: Result - Labs CBC & Chem 7: 07/17/17 05:25 07/17/17 05:25 - VTE Documentation of Mechanical Device: Graduated compression elastic hosiery Consult Discharge Plan - Plan Referrals: Brian Cobos MD [Primary Care Provider] -
[2017-07-20] MEDS: *HR* Heparin 5,000 UNIT/ML VIAL SQ SCH ×2 (05:06→18:15)
[2017-07-20] MEDS: Acetaminophen 325 MG TABLET PO PRN (05:30)
[2017-07-20 06:45] LABS: Basophils % 0.3 %; Eosinophils # 0.3 K/mcL (0.0-0.6); Eosinophils % 4.9 %; Hematocrit 31.3 % (35.3-44.9); Hemoglobin 10.3 g/dL (11.5-15.4); Immature Granulocytes % 0.3 % (0-4); Lymphocytes # 1.5 K/mcL (0.6-4.6); Lymphocytes % 22.4 %; Mean Corpuscular HGB Conc 32.9 g/dL (31.6-35.5); Mean Corpuscular Hemoglobin 34.3 pg (28.0-33.3); Mean Corpuscular Volume 104.3 fL (83.0-100.0); Monocytes # 0.6 K/mcL (0.0-1.3); Monocytes % 9.3 %; Neutrophils # 4.1 K/mcL (1.6-8.9); Platelet Count 375 K/mcL (140-400); Red Cell Distribution Width 16.5 % (11.5-14.5); Segmented Neutrophils % 62.8 %
[2017-07-20 06:52] LABS: BUN/Creatinine Ratio 21 (6-26); Blood Urea Nitrogen 13 mg/dL (8-23); Calcium 8.6 mg/dL (8.6-10.3); Carbon Dioxide 29 mEq/L (23-29); Chloride 105 mEq/L (98-107); Glucose 101 mg/dL (70-105); Osmolality,Calculated 290 (280-300); Potassium 3.8 mEq/L (3.5-5.1); Sodium 140 mEq/L (136-145); eGFR For African Americans > 60 (> 60); eGFR For Non-African Americans > 60 (> 60)
[2017-07-20] MEDS: *HR* OxyCODONE Immed Rel 5 MG TABLET PO PRN ×4 (08:13→20:28)
[2017-07-20] MEDS: cephALEXin 500 MG CAPSULE PO SCH ×4 (08:13→20:28)
[2017-07-20] MEDS: Cholecalciferol (D-3) 1,000 UNIT TABLET PO SCH (08:13)
[2017-07-20] MEDS: Gabapentin 300 MG CAPSULE PO SCH (08:13)
[2017-07-20] MEDS: Multivit/Ca/Min/Fe/FA 1 TAB TABLET PO SCH (08:14)
[2017-07-20] MEDS: Celecoxib 200 MG CAPSULE PO SCH (08:14)
[2017-07-20] MEDS: Aspirin Enteric Coated 81 MG Tablet PO SCH (08:14)
[2017-07-20] MEDS: Sennosides 8.6 MG TABLET PO SCH (08:14)
[2017-07-20 08:44] LABS: C-Reactive Protein 18 mg/L (Less than 10)
--- NOTE | 2017-07-20 10:46 | Internal Med Progress Note ---
Date of Encounter: 07/20/17 Time of Encounter: 10:35 - Assessment and plan (1) Fracture of right hip requiring operative repair Current Visit: Yes Status: Acute Assessment and plan: Right hip surgical suture line appears dry and intact. Patient has a small amount of ecchymosis to the posterior thigh and swelling to right hip. Leg leg is slightly swollen. No calve tenderness. No signs of infectious process noted. Patient is afebrile. Patient has complained of moderate pain to right hip during therapy. We will reevaluate patient's current medications. Labs show hemoglobin is stable greater than 10. Will remove mason per Ortho DC orders. Continue with therapy. Prepare for possible DC in the next several days. Qualifiers: Encounter type: subsequent encounter Fracture type: closed Fracture healing: with delayed healing Qualified Code(s): S72.001G - Fracture of unspecified part of neck of right femur, subsequent encounter for closed fracture with delayed healing (2) HTN (hypertension) Current Visit: Yes Status: Acute Assessment and plan: Vital signs stable. We will continue with current medications and monitor closely. Qualifiers: Hypertension type: essential hypertension Qualified Code(s): I10 - Essential (primary) hypertension (3) GERD (gastroesophageal reflux disease) Current Visit: Yes Status: Acute Assessment and plan: No current complaints. We will continue with current scheduled medications. Qualifiers: Esophagitis presence: without esophagitis Qualified Code(s): K21.9 - Gastro -esophageal reflux disease without esophagitis - Time Spent With Patient less than 15 minutes - Subjective Interval history: Patient appears relaxed. Patient states that she continues to have increased pain when mobilizing, but that it has improved. Patient states concerns about her surgical mason in place. - Constitutional Vitals: Temp Pulse Resp BP Pulse Ox 97.8 F 79 16 146/65 93 07/20/17 06:57 07/20/17 06:57 07/20/17 06:57 07/20/17 06:57 07/20/17 06:57 General appearance: Present: cooperative, A&O X 3, pleasant, no acute distress, answers questions appropriately - Head Head exam: Present: atraumatic, normocephalic - Eye Eye exam: Present: PERRL, conjuntiva pink, sclera anicteric Pupils: Present: PERRL - Neck Neck exam general surgery: Present: supple, trachea midline. Absent: lymphadenopathy - Respiratory Respiratory exam: Present: CTAB. Absent: accessory muscle use, rales, rhonchi, wheezes - Cardiovascular Cardiovascular exam: Present: RRR, +S1, +S2. Absent: diastolic murmur, gallop, rubs, systolic murmur - GI/Abdominal GI/Abdominal exam: Present: normal bowel sounds, soft, no peritoneal signs. Absent: distended, tenderness - Extremities Exam Extremities exam: Present: warm, radial pulses palpable and symmetrical. Absent : calf tenderness, cyanotic, pedal edema Additional comments: Right hip surgical staple line appears dry and intact. Small amount of ecchymosis noted surrounding incisions and moderate swelling to right hip. Right hip remains slightly tender posteriorly on palpation. - Neurological Exam Neurological exam: Present: CN II-XII intact, oriented X3, no focal deficits. Absent: pronater drift, facial droop, speech deficit - Skin Skin exam: Present: dry, intact Internal Medicine: Result - Labs CBC & Chem 7: 07/20/17 05:55 07/20/17 05:55 Labs: Short CBC 07/20/17 Range/Units 05:55 WBC 6.5 (4.3-11.1) K/mcL Hgb 10.3 L (11.5-15.4) g/dL Hct 31.3 L (35.3-44.9) % Plt Count 375 (140-400) K/mcL Neutrophils # 4.1 (1.6-8.9) K/mcL BMP 07/20/17 05:55 Sodium 140 Potassium 3.8 Chloride 105 Carbon Dioxide 29 BUN 13 Creatinine 0.61 Glucose 101 Calcium 8.6 - VTE Documentation of Mechanical Device: Graduated compression elastic hosiery Consult Discharge Plan - Plan Referrals: Brian Cobos MD [Primary Care Provider] -
--- NOTE | 2017-07-20 10:54 | Discharge Summary ---
<JaspreetFrancisco R - Last Filed: 07/20/17 10:52> Orders not resulted at time of discharge: Pending orders 07/23/17 04:00 BMP [Basic Metabolic Panel] MO CBC [Complete Blood Count] [HEME] MO 07/30/17 04:00 BMP [Basic Metabolic Panel] MO CBC [Complete Blood Count] [HEME] MO 08/06/17 04:00 BMP [Basic Metabolic Panel] MO CBC [Complete Blood Count] [HEME] MO 08/13/17 04:00 BMP [Basic Metabolic Panel] MO CBC [Complete Blood Count] [HEME] MO 08/20/17 04:00 BMP [Basic Metabolic Panel] MO CBC [Complete Blood Count] [HEME] MO 08/27/17 04:00 BMP [Basic Metabolic Panel] MO CBC [Complete Blood Count] [HEME] MO 09/03/17 04:00 BMP [Basic Metabolic Panel] MO CBC [Complete Blood Count] [HEME] MO 09/10/17 04:00 BMP [Basic Metabolic Panel] MO CBC [Complete Blood Count] [HEME] MO 09/17/17 04:00 BMP [Basic Metabolic Panel] MO CBC [Complete Blood Count] [HEME] MO Date of Encounter: 07/20/17 - Discharge Diagnosis (1) Fracture of right hip requiring operative repair Priority: Primary Status: Acute Comments: Surgical incision appears dry and intact with a small amount of ecchymosis and edema surrounding surgical area. Patient originally was a traumatic fracture requiring surgical intervention. Moderate pain to right hip postoperatively, which increased her immobilization. Patient progressed well with physical therapy. Patient continue follow-up with orthopedics. Continue with daily wound care. Qualifiers: Encounter type: subsequent encounter Fracture type: closed Fracture healing: with delayed healing Qualified Code(s): S72.001G - Fracture of unspecified part of neck of right femur, subsequent encounter for closed fracture with delayed healing (2) HTN (hypertension) Priority: Secondary Status: Chronic Comments: No acute issues during stay of facility. Patient to continue with home medications Qualifiers: Hypertension type: essential hypertension Qualified Code(s): I10 - Essential (primary) hypertension (3) GERD (gastroesophageal reflux disease) Priority: Secondary Status: Chronic Comments: No acute issues during stay of facility. Patient to continue with home medications Qualifiers: Esophagitis presence: without esophagitis Qualified Code(s): K21.9 - Gastro -esophageal reflux disease without esophagitis Hospital course: Ms. Waters is a 81 year old female, who was admitted to rehab from [facility] s/p right subtrochanteric femur fracture and ORIF. 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 Past medical history includes arthritis, Gerd, hypertension. Patient was admitted at this facility for further rehabilitation following her surgical intervention. Patient participated in physical therapy and progressed well. Patient had moderate pain during physical therapy, which has improved over time with adjustments to her pain regimen. Surgical and showed a large amount of ecchymosis and immediately following her surgery, which has improved over the past week. Surgical wound appears healthy and intact. No other acute issues occurred during her stay. Patient to continue follow-up with her orthopedic surgeon. Discharge discussed with: patient, family Time spent discussing smoking cessation with patient: 3 to 10 minutes - Time Spent with Patient Total time spent providing and/or coordinating discharge services: Less than 30 minutes - Discharge Medications Prescriptions: Cephalexin [Keflex] 500 mg PO QID #60 capsule Home Medications: Alendronate Sodium 70 mg PO QWEEK 07/04/17 [History] Aspirin [Lo-Dose Aspirin EC] 81 mg PO DAILY 07/04/17 [History] Calcium Carbonate/Vitamin D3 [Calcium 500 mg Chewable Tablet] 1 tab PO DAILY 04/22 [History] Celecoxib [Celebrex] 200 mg PO DAILY 07/04/17 [History] Gabapentin [Neurontin] 300 mg PO DAILY 07/04/17 [History] Minocycline [Minocin] 50 mg PO DAILY 07/04/17 [History] Multivit with Calcium,Iron,Min [One Daily Women's] 1 tab PO DAILY 07/04/17 [ History] Omeprazole [PriLOSEC] 20 mg PO DAILY 07/04/17 [History] Solifenacin Succinate [Vesicare] 5 mg PO DAILY 07/04/17 [History] OxyCODONE Immed Rel [Roxicodone 5 MG] 5 mg PO Q4HR PRN 07/10/17 [History] Cephalexin [Keflex] 500 mg PO QID #60 capsule 07/21/17 [Rx] Allergies/Adverse Reactions: 3 Allergy/AdvReac Type Severity Reaction Status Date / Time hydrocortisone Allergy Rash Verified 10/18/15 16:20 [From Cortizone-10] Date of admission: 07/10/17 18:21 Primary care physician: Brian Cobos MD Consults: 07/10/17 19:11 Consult to Occupational Therapy [CONS] Routine Comment: Evaluate, develop and implement POC Reason for Consult: eval Does patient have active BEDREST order?: No Is patient medically & hemodynamically stable?: Yes Consult to Physical Therapy [CONS] Routine Comment: Evaluate, develop and implement POC Reason for Consult: eval Does patient have active BEDREST order?: No Is patient medically & hemodynamically stable?: Yes Consult to Manager Of Medical [CONS] Routine Reason for SW Consult: eval 07/10/17 19:12 Consult to Physical Medicine/Rehab [CONS] Routine Reason for Consult: eval Time Notified: 19:13 Call Completed: No 07/10/17 22:02 Consult to Pastoral Services [CONS] Routine Comment: Discharging clinician: Alf Egan - Constitutional Vitals: Temp Pulse Resp BP Pulse Ox 97.8 F 79 16 146/65 93 07/20/17 06:57 07/20/17 06:57 07/20/17 06:57 07/20/17 06:57 07/20/17 06:57 General appearance: Present: cooperative, A&O X 3, pleasant, no acute distress, answers questions appropriately - Head Head exam: Present: atraumatic, normocephalic - Eye Eye exam: Present: PERRL, conjuntiva pink, sclera anicteric Pupils: Present: PERRL - Neck Neck exam general surgery: Present: supple, trachea midline. Absent: lymphadenopathy - Respiratory Respiratory exam: Present: CTAB. Absent: accessory muscle use, rales, rhonchi, wheezes - Cardiovascular Cardiovascular exam: Present: RRR, +S1, +S2. Absent: diastolic murmur, gallop, rubs, systolic murmur - GI/Abdominal GI/Abdominal exam: Present: normal bowel sounds, soft, no peritoneal signs. Absent: distended, tenderness - Extremities Exam Extremities exam: Present: warm, radial pulses palpable and symmetrical. Absent : calf tenderness, cyanotic, pedal edema Additional comments: Right hip and thigh surgical incisions appear dry and intact. Continued small amount of ecchymosis mostly to posterior thigh. Moderate amount of swelling to right hip and leg. No calf tenderness - Neurological Exam Neurological exam: Present: CN II-XII intact, oriented X3, no focal deficits. Absent: pronater drift, facial droop, speech deficit - Skin Skin exam: Present: dry, intact - Patient Status Disposition: Home Health Service Condition: Good - Discharge Instructions Follow Up With: Brian Cobos MD [Primary Care Provider] - - VTE Documentation of Mechanical Device: Graduated compression elastic hosiery <Alf Egan - Last Filed: 07/21/17 15:41> - NOTES TO OUTPATIENT PROVIDER Notes to Outpatient Provider: Patient states that she has follow-up with surgeon on or about August 03. Will pain on antibiotics empirically until that point. Orders not resulted at time of discharge: Pending orders 07/23/17 04:00 BMP [Basic Metabolic Panel] MO CBC [Complete Blood Count] [HEME] MO 07/30/17 04:00 BMP [Basic Metabolic Panel] MO CBC [Complete Blood Count] [HEME] MO 08/06/17 04:00 BMP [Basic Metabolic Panel] MO CBC [Complete Blood Count] [HEME] MO 08/13/17 04:00 BMP [Basic Metabolic Panel] MO CBC [Complete Blood Count] [HEME] MO 08/20/17 04:00 BMP [Basic Metabolic Panel] MO CBC [Complete Blood Count] [HEME] MO 08/27/17 04:00 BMP [Basic Metabolic Panel] MO CBC [Complete Blood Count] [HEME] MO 09/03/17 04:00 BMP [Basic Metabolic Panel] MO CBC [Complete Blood Count] [HEME] MO 09/10/17 04:00 BMP [Basic Metabolic Panel] MO CBC [Complete Blood Count] [HEME] MO 09/17/17 04:00 BMP [Basic Metabolic Panel] MO CBC [Complete Blood Count] [HEME] MO Date of Encounter: 07/21/17 Time of Encounter: 15:38 - Discharge Diagnosis (1) Fracture of right hip requiring operative repair Status: Acute Qualifiers: Encounter type: subsequent encounter Fracture type: closed Fracture healing: with delayed healing Qualified Code(s): S72.001G - Fracture of unspecified part of neck of right femur, subsequent encounter for closed fracture with delayed healing (2) Slow transit constipation Status: Acute (3) HTN (hypertension) Status: Chronic Qualifiers: Hypertension type: essential hypertension Qualified Code(s): I10 - Essential (primary) hypertension (4) GERD (gastroesophageal reflux disease) Status: Chronic Qualifiers: Esophagitis presence: without esophagitis Qualified Code(s): K21.9 - Gastro -esophageal reflux disease without esophagitis Hospital course: Ms. Waters is a 81 year old female - Time Spent with Patient Total time spent providing and/or coordinating discharge services: Date of admission: 07/10/17 18:21 Primary care physician: Brian Cobos MD Consults: 07/10/17 19:11 Consult to Occupational Therapy [CONS] Routine Comment: Evaluate, develop and implement POC Reason for Consult: eval Does patient have active BEDREST order?: No Is patient medically & hemodynamically stable?: Yes Consult to Physical Therapy [CONS] Routine Comment: Evaluate, develop and implement POC Reason for Consult: eval Does patient have active BEDREST order?: No Is patient medically & hemodynamically stable?: Yes Consult to Manager Of Medical [CONS] Routine Reason for SW Consult: eval 07/10/17 19:12 Consult to Physical Medicine/Rehab [CONS] Routine Reason for Consult: eval Time Notified: 19:13 Call Completed: No 07/10/17 22:02 Consult to Pastoral Services [CONS] Routine Comment: Anticipated date of discharge: 07/21/17 - Constitutional Vitals: Temp Pulse Resp BP Pulse Ox 97.7 F 87 16 128/69 95 07/21/17 06:50 07/21/17 06:50 07/21/17 06:50 07/21/17 06:50 07/21/17 06:50 Exam: See progress note this date - Patient Status Functional capacity at discharge: uses cane/walker
[2017-07-21] MEDS: tiZANidine 4 MG TABLET PO PRN (01:31)
[2017-07-21] MEDS: *HR* OxyCODONE Immed Rel 5 MG TABLET PO PRN ×4 (04:25→17:51)
[2017-07-21] MEDS: *HR* Heparin 5,000 UNIT/ML VIAL SQ SCH ×2 (04:26→17:52)
[2017-07-21] MEDS: Celecoxib 200 MG CAPSULE PO SCH (08:50)
[2017-07-21] MEDS: cephALEXin 500 MG CAPSULE PO SCH ×4 (08:50→19:56)
[2017-07-21] MEDS: Gabapentin 300 MG CAPSULE PO SCH (08:50)
[2017-07-21] MEDS: Aspirin Enteric Coated 81 MG Tablet PO SCH (08:51)
[2017-07-21] MEDS: Sennosides 8.6 MG TABLET PO SCH (08:51)
[2017-07-21] MEDS: Multivit/Ca/Min/Fe/FA 1 TAB TABLET PO SCH (08:51)
[2017-07-21] MEDS: Cholecalciferol (D-3) 1,000 UNIT TABLET PO SCH (08:51)
--- NOTE | 2017-07-21 13:40 | Internal Med Progress Note ---
Date of Encounter: 07/21/17 Time of Encounter: 13:38 - Assessment and plan (1) Fracture of right hip requiring operative repair Current Visit: Yes Status: Acute Assessment and plan: She continues to progress well, as pain with ambulation. Has postoperative ecchymosis but no signs of infection, otherwise. Will keep her on antibiotics because of her increased ecchymosis until seen by surgeon. Qualifiers: Encounter type: subsequent encounter Fracture type: closed Fracture healing: with delayed healing Qualified Code(s): S72.001G - Fracture of unspecified part of neck of right femur, subsequent encounter for closed fracture with delayed healing (2) Slow transit constipation Current Visit: Yes Status: Acute Assessment and plan: This is currently resolved she had a bowel movement yesterday. (3) HTN (hypertension) Current Visit: Yes Status: Chronic Assessment and plan: Clinically stable. We will continue home regimen and follow. Qualifiers: Hypertension type: essential hypertension Qualified Code(s): I10 - Essential (primary) hypertension (4) GERD (gastroesophageal reflux disease) Current Visit: Yes Status: Chronic Assessment and plan: Clinically stable. We will continue home regimen and follow. Qualifiers: Esophagitis presence: without esophagitis Qualified Code(s): K21.9 - Gastro -esophageal reflux disease without esophagitis - Subjective Interval history: Patient is concerned about pain that occurs with walking, as before. No fevers chills, sweats, etc. discussed with patient and family her insurance and need to go home. Her follow-up with surgeon is 08/04/2017. We will keep her on empiric antibiotics of them and she and family are aware. Patient has no complaint of chest discomfort, dyspnea, orthopnea, palpitations, nausea or vomiting, constipation or diarrhea, other changes in bowel habits, difficulty with urination, rash or itching, or other new complaints, except as mentioned above. Review of systems is otherwise negative. - Constitutional Vitals: Temp Pulse Resp BP Pulse Ox 97.7 F 87 16 128/69 95 07/21/17 06:50 07/21/17 06:50 07/21/17 06:50 07/21/17 06:50 07/21/17 06:50 General appearance: Present: cooperative, pleasant, answers questions appropriately Exam: Examination: (Except as mentioned above): General: In no apparent distress. Alert and oriented 3. Nondiaphoretic. Head: Atraumatic and normocephalic. Respiratory: No use of accessory muscles. Lungs are clear throughout. Normal airflow. Cardiovascular: Regular rate and rhythm without murmur appreciated. Abdomen: Bowel sounds are normal. No hepatosplenomegaly mass or tenderness appreciated. Obese and therefore difficult to palpate deeply. Extremities: No cyanosis clubbing or edema. Still has ecchymosis and some swelling around wound but this is improving, slowly but surely. Skin: Warm and non-diaphoretic with no new lesions noted. Internal Medicine: Result - Labs CBC & Chem 7: 07/20/17 05:55 07/20/17 05:55 - VTE Documentation of Mechanical Device: Graduated compression elastic hosiery Consult Discharge Plan - Plan Referrals: Brian Cobos MD [Primary Care Provider] -
--- NOTE | 2017-07-21 14:37 | Internal Med Progress Note ---
Date of Encounter: 07/14/17 Time of Encounter: 10:20 - Assessment and plan (1) Fracture of right hip requiring operative repair Current Visit: Yes Status: Acute Assessment and plan: She continues to progress well, but still has pain with ambulation. Tried to encourage patient and family that this is typical, postop. We will continue with therapy. Qualifiers: Encounter type: subsequent encounter Fracture type: closed Fracture healing: with delayed healing Qualified Code(s): S72.001G - Fracture of unspecified part of neck of right femur, subsequent encounter for closed fracture with delayed healing (2) Slow transit constipation Current Visit: Yes Status: Acute Assessment and plan: We will continue as needed laxatives and stool softeners. (3) HTN (hypertension) Current Visit: Yes Status: Chronic Assessment and plan: Clinically stable. We will continue home regimen and follow. Qualifiers: Hypertension type: essential hypertension Qualified Code(s): I10 - Essential (primary) hypertension (4) GERD (gastroesophageal reflux disease) Current Visit: Yes Status: Chronic Assessment and plan: Clinically stable. We will continue home regimen and follow. Qualifiers: Esophagitis presence: without esophagitis Qualified Code(s): K21.9 - Gastro -esophageal reflux disease without esophagitis - Subjective Interval history: For schedule and/or computer reasons, this note is a late entry. Patient was seen on the date of the initial note. Patient remains concerned about swelling at local wound issues. Bowels moving well, no breathing problems. No other acute issues. Therapy is proceeding well. Patient has no complaint of chest discomfort, dyspnea, orthopnea, palpitations, nausea or vomiting, constipation or diarrhea, other changes in bowel habits, difficulty with urination, rash or itching, or other new complaints, except as mentioned above. Review of systems is otherwise negative. - Constitutional Vitals: Temp Pulse Resp BP Pulse Ox 97.7 F 87 16 128/69 95 07/21/17 06:50 07/21/17 06:50 07/21/17 06:50 07/21/17 06:50 07/21/17 06:50 General appearance: Present: cooperative, pleasant, answers questions appropriately Exam: Examination: (Except as mentioned above): General: In no apparent distress. Alert and oriented 3. Nondiaphoretic. Head: Atraumatic and normocephalic. Respiratory: No use of accessory muscles. Lungs are clear throughout. Normal airflow. Cardiovascular: Regular rate and rhythm without murmur appreciated. Abdomen: Bowel sounds are normal. No hepatosplenomegaly mass or tenderness appreciated. Obese and therefore difficult to palpate deeply. Extremities: No cyanosis clubbing or edema. Still with some erythema and edema around the wound site. Otherwise, wound is intact without sign of inflammation or infection. Skin: Warm and non-diaphoretic with no new lesions noted. Internal Medicine: Result - Labs CBC & Chem 7: 07/20/17 05:55 07/20/17 05:55 - VTE Documentation of Mechanical Device: Graduated compression elastic hosiery Consult Discharge Plan - Plan Referrals: Brian Cobos MD [Primary Care Provider] - Prescriptions: Cephalexin [Keflex] 500 mg PO QID #60 capsule
--- NOTE | 2017-07-21 14:42 | Internal Med Progress Note ---
Date of Encounter: 07/15/17 Time of Encounter: 20:00 - Assessment and plan (1) Fracture of right hip requiring operative repair Current Visit: Yes Status: Acute Assessment and plan: She continues to progress well. We will continue as planned with therapies. Qualifiers: Encounter type: subsequent encounter Fracture type: closed Fracture healing: with delayed healing Qualified Code(s): S72.001G - Fracture of unspecified part of neck of right femur, subsequent encounter for closed fracture with delayed healing (2) Slow transit constipation Current Visit: Yes Status: Acute Assessment and plan: We will continue as needed laxatives and stool softeners. (3) HTN (hypertension) Current Visit: Yes Status: Chronic Assessment and plan: Clinically stable. We will continue home regimen and follow. Qualifiers: Hypertension type: essential hypertension Qualified Code(s): I10 - Essential (primary) hypertension (4) GERD (gastroesophageal reflux disease) Current Visit: Yes Status: Chronic Assessment and plan: Clinically stable. We will continue home regimen and follow. Qualifiers: Esophagitis presence: without esophagitis Qualified Code(s): K21.9 - Gastro -esophageal reflux disease without esophagitis - Subjective Interval history: For schedule and/or computer reasons, this note is a late entry. Patient was seen on the date of the initial note. Patient without acute issues. Continues to relax but now therapy today so not as much pain. No cord or calf tenderness, no other problems. Patient has no complaint of chest discomfort, dyspnea, orthopnea, palpitations, nausea or vomiting, constipation or diarrhea, other changes in bowel habits, difficulty with urination, rash or itching, or other new complaints, except as mentioned above. Review of systems is otherwise negative. - Constitutional Vitals: Temp Pulse Resp BP Pulse Ox 97.7 F 87 16 128/69 95 07/21/17 06:50 07/21/17 06:50 07/21/17 06:50 07/21/17 06:50 07/21/17 06:50 General appearance: Present: cooperative, pleasant, answers questions appropriately Exam: Examination: (Except as mentioned above): General: In no apparent distress. Alert and oriented 3. Nondiaphoretic. Head: Atraumatic and normocephalic. Respiratory: No use of accessory muscles. Lungs are clear throughout. Normal airflow. Cardiovascular: Regular rate and rhythm without murmur appreciated. Abdomen: Bowel sounds are normal. No hepatosplenomegaly mass or tenderness appreciated. Obese and therefore difficult to palpate deeply. Extremities: No cyanosis clubbing or edema. No change in appearance of wound. Upper and lower poles, both looked at. Skin: Warm and non-diaphoretic with no new lesions noted. Internal Medicine: Result - Labs CBC & Chem 7: 07/20/17 05:55 07/20/17 05:55 - VTE Documentation of Mechanical Device: Graduated compression elastic hosiery Consult Discharge Plan - Plan Referrals: Brian Cobos MD [Primary Care Provider] - Prescriptions: Cephalexin [Keflex] 500 mg PO QID #60 capsule
--- NOTE | 2017-07-21 15:44 | Physician Discharge Referral ---
Home Health/Hosp Referral Info Transfer to: Home Health - Diagnosis (1) Fracture of right hip requiring operative repair Priority: Primary Status: Acute (2) Slow transit constipation Priority: Secondary Status: Acute (3) HTN (hypertension) Priority: Secondary Status: Chronic (4) GERD (gastroesophageal reflux disease) Status: Chronic - Respiratory Orders Smoking Cessation: Smoking cessation has been advised. For more information, call the [place] Tobacco Quit Line at 8-559-BBMJ-NOW. - Diet/Nutrition Diet/Nutrition Orders: No Added Salt (MAX) - Services Needed Following services are medically necessary services: Nursing, Physical Therapy - Transfer Medications Prescriptions: Cephalexin [Keflex] 500 mg PO QID #60 capsule Home Medications: Alendronate Sodium 70 mg PO QWEEK 07/04/17 [History] Aspirin [Lo-Dose Aspirin EC] 81 mg PO DAILY 07/04/17 [History] Calcium Carbonate/Vitamin D3 [Calcium 500 mg Chewable Tablet] 1 tab PO DAILY 04/22 [History] Celecoxib [Celebrex] 200 mg PO DAILY 07/04/17 [History] Gabapentin [Neurontin] 300 mg PO DAILY 07/04/17 [History] Minocycline [Minocin] 50 mg PO DAILY 07/04/17 [History] Multivit with Calcium,Iron,Min [One Daily Women's] 1 tab PO DAILY 07/04/17 [ History] Omeprazole [PriLOSEC] 20 mg PO DAILY 07/04/17 [History] Solifenacin Succinate [Vesicare] 5 mg PO DAILY 07/04/17 [History] OxyCODONE Immed Rel [Roxicodone 5 MG] 5 mg PO Q4HR PRN 07/10/17 [History] Cephalexin [Keflex] 500 mg PO QID #60 capsule 07/21/17 [Rx] Allergies/Adverse Reactions: 3 Allergy/AdvReac Type Severity Reaction Status Date / Time hydrocortisone Allergy Rash Verified 10/18/15 16:20 [From Cortizone-10] Certification: Further, I certify that my clinical findings support that this patient is homebound (i.e. absences from home require considerable and taxing effort and are for medical reasons or bahai services or infrequently or short duration when for other reasons) because: Homebound Reason: Post-surgery restriction and or conditions limit ability to leave home Attestation: My signature below is to certify that this patient is under my care and that I, or nurse practitioner, or a physician's assistant professor of surgery working with me, has a face-to -face encounter with this patient.
[2017-07-22] MEDS: *HR* OxyCODONE Immed Rel 5 MG TABLET PO PRN ×2 (01:45→09:05)
[2017-07-22] MEDS: Acetaminophen 325 MG TABLET PO PRN (04:52)
[2017-07-22] MEDS: tiZANidine 4 MG TABLET PO PRN (04:52)
[2017-07-22] MEDS: *HR* Heparin 5,000 UNIT/ML VIAL SQ SCH (04:53)
[2017-07-22 08:19] VITALS: BP 122/70
[2017-07-22] MEDS: Celecoxib 200 MG CAPSULE PO SCH (09:05)
[2017-07-22] MEDS: Aspirin Enteric Coated 81 MG Tablet PO SCH (09:05)
[2017-07-22] MEDS: cephALEXin 500 MG CAPSULE PO SCH (09:05)
[2017-07-22] MEDS: Sennosides 8.6 MG TABLET PO SCH (09:06)
[2017-07-22] MEDS: Multivit/Ca/Min/Fe/FA 1 TAB TABLET PO SCH (09:06)
[2017-07-22] MEDS: Gabapentin 300 MG CAPSULE PO SCH (09:06)
[2017-07-22] MEDS: Cholecalciferol (D-3) 1,000 UNIT TABLET PO SCH (09:06)
== END 2017-07-22 10:45 | disposition home health service (06) | DRG 561 ==
LOC: INPGRE 18:21